=== PATIENT | female | born 1935 | race Caucasian/White ===

== ENCOUNTER 2019-03-02 07:35 | Emergency (ER) | payer MEDICARE, BC ==
[2019-03-02] MEDS: predniSONE 20 MG TAB PO (08:32)
== END 2019-03-02 08:46 | disposition home or self-care (01) ==
LOC: E/R 08:46
DX: H01.004 Unspecified blepharitis left upper eyelid (principal); I10 Essential (primary) hypertension
CPT/HCPCS: 99283